=== PATIENT | female | born 1945 | race Caucasian/White ===

== ENCOUNTER 2019-10-25 15:20 | Inpatient (IN) ==
[2019-10-25] MEDS ORDERED: Baclofen 10 MG TABLET PO PRN (17:41)
[2019-10-25] MEDS: Apixaban 5 MG TABLET PO SCH ×2 (19:11→21:12)
[2019-10-25] MEDS: *HR* HYDROcodone/Acet 5/325 mg TABLET PO PRN (19:15)
[2019-10-25] MEDS: Magnesium Oxide 400 MG TABLET PO SCH (21:12)
[2019-10-25] MEDS: Gabapentin 100 MG CAPSULE PO SCH (21:13)
[2019-10-26] MEDS: *HR* HYDROcodone/Acet 5/325 mg TABLET PO PRN ×3 (09:20→21:44)
[2019-10-26] MEDS: *HR* Metformin 500 MG TABLET PO SCH ×2 (09:20→17:01)
[2019-10-26] MEDS: Apixaban 5 MG TABLET PO SCH ×2 (09:20→20:13)
[2019-10-26] MEDS: calcitrioL 0.25 MCG CAPSULE PO SCH (09:21)
[2019-10-26] MEDS: Magnesium Oxide 400 MG TABLET PO SCH ×2 (09:21→20:13)
[2019-10-26] MEDS: hydroCHLOROthiazide 25 MG TABLET PO SCH (09:21)
[2019-10-26] MEDS: Gabapentin 100 MG CAPSULE PO SCH ×2 (09:21→20:13)
[2019-10-26] MEDS: amLODIPine 5 MG TABLET PO SCH (09:21)
[2019-10-26 12:14] LABS: Basophils % 0.5 %; Eosinophils # 0.3 K/mcL (0.0-0.6); Eosinophils % 3.2 %; Hematocrit 28.7 % (35.3-44.9); Hemoglobin 9.2 g/dL (11.5-15.4); Immature Granulocytes % 0.4 % (0-4); Lymphocytes % 23.4 %; Mean Corpuscular HGB Conc 32.1 g/dL (31.6-35.5); Mean Corpuscular Hemoglobin 29.7 pg (28.0-33.3); Mean Corpuscular Volume 92.6 fL (83.0-100.0); Mean Platelet Volume 9.8 fL (9.4-12.4); Monocytes # 0.8 K/mcL (0.0-1.3); Monocytes % 9.5 %; Neutrophils # 5.2 K/mcL (1.6-8.9); Platelet Count 266 K/mcL (140-400); Red Cell Distribution Width 13.8 % (11.5-14.5); White Blood Count 8.3 K/mcL (4.3-11.1)
[2019-10-26 12:31] LABS: Alanine Aminotransferase 3 Units/L (7-52); Albumin 3.1 g/dL (3.5-5.7); Albumin/Globulin Ratio 0.9 (1.1-2.2); Alkaline Phosphatase 60 Units/L (34-104); Aspartate Amino Transferase 15 Units/L (13-39); BUN/Creatinine Ratio 16 (6-26); Bilirubin,Total 0.5 mg/dL (0.3-1.0); Blood Urea Nitrogen 12 mg/dL (8-23); Calcium 8.8 mg/dL (8.6-10.3); Carbon Dioxide 32 mEq/L (23-29); Chloride 103 mEq/L (98-107); Globulin 3.3 g/dL (2.4-3.5); Glucose 127 mg/dL (70-105); Osmolality,Calculated 293 (280-300); Potassium 3.9 mEq/L (3.5-5.1); Sodium 141 mEq/L (136-145); Total Protein 6.4 g/dL (6.4-8.9); eGFR For African Americans > 60 (> 60); eGFR For Non-African Americans > 60 (> 60)
[2019-10-27 07:44] LABS: Basophils % 0.4 %; Eosinophils # 0.4 K/mcL (0.0-0.6); Eosinophils % 5.2 %; Hematocrit 30.2 % (35.3-44.9); Hemoglobin 9.7 g/dL (11.5-15.4); Immature Granulocytes % 0.5 % (0-4); Lymphocytes # 2.2 K/mcL (0.6-4.6); Lymphocytes % 26.8 %; Mean Corpuscular HGB Conc 32.1 g/dL (31.6-35.5); Mean Corpuscular Hemoglobin 29.8 pg (28.0-33.3); Mean Corpuscular Volume 92.9 fL (83.0-100.0); Mean Platelet Volume 9.4 fL (9.4-12.4); Monocytes # 0.9 K/mcL (0.0-1.3); Monocytes % 10.4 %; Neutrophils # 4.6 K/mcL (1.6-8.9); Platelet Count 267 K/mcL (140-400); Red Blood Count 3.25 M/mcL (3.82-4.97); Red Cell Distribution Width 13.6 % (11.5-14.5); Segmented Neutrophils % 56.7 %; White Blood Count 8.1 K/mcL (4.3-11.1)
[2019-10-27 08:01] LABS: BUN/Creatinine Ratio 19 (6-26); Blood Urea Nitrogen 14 mg/dL (8-23); Calcium 8.8 mg/dL (8.6-10.3); Carbon Dioxide 35 mEq/L (23-29); Chloride 102 mEq/L (98-107); Glucose 115 mg/dL (70-105); Osmolality,Calculated 295 (280-300); Potassium 3.7 mEq/L (3.5-5.1); Sodium 142 mEq/L (136-145); eGFR For African Americans > 60 (> 60); eGFR For Non-African Americans > 60 (> 60)
[2019-10-27] MEDS: amLODIPine 5 MG TABLET PO SCH (08:29)
[2019-10-27] MEDS: *HR* Metformin 500 MG TABLET PO SCH ×2 (08:29→17:14)
[2019-10-27] MEDS: Magnesium Oxide 400 MG TABLET PO SCH ×2 (08:29→20:08)
[2019-10-27] MEDS: hydroCHLOROthiazide 25 MG TABLET PO SCH (08:30)
[2019-10-27] MEDS: calcitrioL 0.25 MCG CAPSULE PO SCH (08:30)
[2019-10-27] MEDS: Gabapentin 100 MG CAPSULE PO SCH ×2 (08:30→20:08)
[2019-10-27] MEDS: Apixaban 5 MG TABLET PO SCH ×2 (08:34→20:09)
[2019-10-27] MEDS: *HR* HYDROcodone/Acet 5/325 mg TABLET PO PRN ×3 (08:38→20:09)
[2019-10-27] MEDS ORDERED: Ondansetron 4 MG/2 ML VIAL IVP PRN (20:32)
[2019-10-27] MEDS: Ondansetron ODT 4 MG TAB.RAPDIS SL PRN (21:18)
[2019-10-28] MEDS: *HR* HYDROcodone/Acet 5/325 mg TABLET PO PRN ×3 (06:39→21:23)
[2019-10-28 07:20] LABS: Estimated Average Glucose 148 mg/dl
[2019-10-28 07:44] LABS: BUN/Creatinine Ratio 17 (6-26); Blood Urea Nitrogen 12 mg/dL (8-23); Calcium 8.6 mg/dL (8.6-10.3); Carbon Dioxide 34 mEq/L (23-29); Chloride 100 mEq/L (98-107); Glucose 107 mg/dL (70-105); Osmolality,Calculated 292 (280-300); Potassium 3.5 mEq/L (3.5-5.1); Sodium 141 mEq/L (136-145); eGFR For African Americans > 60 (> 60); eGFR For Non-African Americans > 60 (> 60)
[2019-10-28] MEDS: *HR* Metformin 500 MG TABLET PO SCH ×2 (08:42→17:10)
[2019-10-28] MEDS: calcitrioL 0.25 MCG CAPSULE PO SCH (08:42)
[2019-10-28] MEDS: Magnesium Oxide 400 MG TABLET PO SCH ×2 (08:42→21:22)
[2019-10-28] MEDS: amLODIPine 5 MG TABLET PO SCH (08:42)
[2019-10-28] MEDS: hydroCHLOROthiazide 25 MG TABLET PO SCH (08:43)
[2019-10-28] MEDS: Apixaban 5 MG TABLET PO SCH ×2 (08:43→21:23)
[2019-10-28] MEDS: Gabapentin 100 MG CAPSULE PO SCH ×2 (08:43→21:23)
[2019-10-28] MEDS: Ondansetron ODT 4 MG TAB.RAPDIS SL PRN (21:30)
[2019-10-29] MEDS: *HR* HYDROcodone/Acet 5/325 mg TABLET PO PRN ×4 (04:10→20:16)
[2019-10-29] MEDS: amLODIPine 5 MG TABLET PO SCH (08:59)
[2019-10-29] MEDS: hydroCHLOROthiazide 25 MG TABLET PO SCH (09:00)
[2019-10-29] MEDS: *HR* Metformin 500 MG TABLET PO SCH ×2 (09:00→17:18)
[2019-10-29] MEDS: calcitrioL 0.25 MCG CAPSULE PO SCH (09:00)
[2019-10-29] MEDS: Magnesium Oxide 400 MG TABLET PO SCH ×2 (09:00→20:15)
[2019-10-29] MEDS: Gabapentin 100 MG CAPSULE PO SCH ×2 (09:00→20:17)
[2019-10-29] MEDS: Apixaban 5 MG TABLET PO SCH ×2 (09:00→20:16)
[2019-10-30] MEDS: *HR* HYDROcodone/Acet 5/325 mg TABLET PO PRN ×3 (00:40→18:19)
[2019-10-30] MEDS: Magnesium Oxide 400 MG TABLET PO SCH ×2 (09:32→20:15)
[2019-10-30] MEDS: amLODIPine 5 MG TABLET PO SCH (09:32)
[2019-10-30] MEDS: Gabapentin 100 MG CAPSULE PO SCH ×2 (09:32→20:14)
[2019-10-30] MEDS: *HR* Metformin 500 MG TABLET PO SCH ×2 (09:32→16:59)
[2019-10-30] MEDS: calcitrioL 0.25 MCG CAPSULE PO SCH (09:32)
[2019-10-30] MEDS: Apixaban 5 MG TABLET PO SCH ×2 (09:33→20:14)
[2019-10-30] MEDS: hydroCHLOROthiazide 25 MG TABLET PO SCH (09:33)
[2019-10-31] MEDS: *HR* HYDROcodone/Acet 5/325 mg TABLET PO PRN (06:17)
[2019-10-31] MEDS: Apixaban 5 MG TABLET PO SCH ×2 (07:44→21:00)
[2019-10-31] MEDS: hydroCHLOROthiazide 25 MG TABLET PO SCH (07:44)
[2019-10-31] MEDS: Gabapentin 100 MG CAPSULE PO SCH ×2 (07:44→21:00)
[2019-10-31] MEDS: calcitrioL 0.25 MCG CAPSULE PO SCH (07:44)
[2019-10-31] MEDS: *HR* Metformin 500 MG TABLET PO SCH ×2 (07:44→17:09)
[2019-10-31] MEDS: Magnesium Oxide 400 MG TABLET PO SCH ×2 (07:44→21:00)
[2019-10-31] MEDS: amLODIPine 5 MG TABLET PO SCH (07:44)
[2019-11-01 08:00] VITALS: BP 146/71
[2019-11-01] MEDS: Magnesium Oxide 400 MG TABLET PO SCH (08:30)
[2019-11-01] MEDS: calcitrioL 0.25 MCG CAPSULE PO SCH (08:30)
[2019-11-01] MEDS: Gabapentin 100 MG CAPSULE PO SCH (08:30)
[2019-11-01] MEDS: hydroCHLOROthiazide 25 MG TABLET PO SCH (08:31)
[2019-11-01] MEDS: Apixaban 5 MG TABLET PO SCH (08:31)
[2019-11-01] MEDS: amLODIPine 5 MG TABLET PO SCH (08:31)
[2019-11-01] MEDS: *HR* Metformin 500 MG TABLET PO SCH (08:31)
== END 2019-11-01 12:40 | disposition home health service (06) | DRG 561 ==
LOC: INPPIK 18:07
PROVIDERS: ADMIT Family Medicine; ATTEND Family Medicine